=== PATIENT | female | born 1960 ===

== ENCOUNTER 2018-11-26 13:17 | Emergency (ER) | payer OTHER, SELFPAY ==
[2018-11-26 13:43] VITALS: RESP 18
[2018-11-26 15:14] VITALS: BP 130/72; PULSE 78; TEMP 98
--- NOTE | 2018-11-26 15:14 | ED PDOC ---
HPI: Dental Pain/Injury Time Seen by Provider: 11/26/18 13:55 Chief Complaint (Nursing): Dental Pain Chief Complaint (Provider): Dental pain History Per: Patient History/Exam Limitations: no limitations Onset/Duration Of Symptoms: Days (9) Current Symptoms Are (Timing): Still Present Quality: "Pain" Additional Complaint(s): 58yo female, history of hypothyroidsm, comes to ER reporting right sided dental pain x 9 days. She reports taking 1-2 doses of motrin but has not taken anything in the past 1 week; reports using Orajel with some improvement in symptoms. She states the pain has been persistent and worsening, prompting the ER visit. She also reports she had a prior filling to that site that "fell out" 7-8 months ago. Otherwise, no fever, chills, neck pain, or other complaints. Past Medical History Reviewed: Historical Data, Nursing Documentation, Vital Signs Vital Signs: Last Vital Signs Temp 97.7 F 11/26/18 13:42 Pulse 71 11/26/18 13:42 Resp 18 11/26/18 13:42 BP 125/78 11/26/18 13:42 Pulse Ox 96 11/26/18 13:42 - Medical History PMH: Hypothyroidism - Surgical History Surgical History: No Surg Hx - Family History Family History: States: No Known Family Hx - Home Medications Home Medications: Ambulatory Orders Medication Instructions Recorded Ibuprofen [Motrin Tab] 600 mg PO Q6 PRN 7 Days tab 11/26/18 Penicillin VK [Penicillin VK Tab] 500 mg PO Q6 7 Days tab 11/26/18 - Allergies Allergies/Adverse Reactions: Allergies Allergy/AdvReac Type Severity Reaction Status Date / Time No Known Allergies Allergy Verified 11/26/18 13:41 Review of Systems Constitutional: Negative for: Fever, Chills ENT: Positive for: Mouth Pain Musculoskeletal: Negative for: Neck Pain Physical Exam - Reviewed Nursing Documentation Reviewed: Yes Vital Signs Reviewed: Yes - Physical Exam Appears: Positive for: Non-toxic, No Acute Distress Head Exam: Positive for: ATRAUMATIC, NORMAL INSPECTION, NORMOCEPHALIC Skin: Positive for: Normal Color Eye Exam: Positive for: EOMI, PERRL ENT: Positive for: Other (2nd molar on right mandible with hyperpigmentation in center of tooth. No purulent drainage or erythema. +tenderness to palpation of associated gum. ). Negative for: Pharyngeal Erythema, Tonsillar Exudate, Tonsillar Swelling Neck: Positive for: Painless ROM, Supple Cardiovascular/Chest: Positive for: Regular Rate, Rhythm. Negative for: Tachycardia Respiratory: Positive for: Normal Breath Sounds. Negative for: Respiratory Distress Neurological/Psych: Positive for: Awake, Alert - ECG O2 Sat by Pulse Oximetry: 96 (RA) Pulse Ox Interpretation: Normal Medical Decision Making Medical Decision Makinyo female with dental pain Plan: -- Patient given 500mg [place] VK PO Patient informed on need to follow up with dentist MARCEL; informed that treatment today is only temporary and she needs to follow up with dentist for further evaluation. Patient agrees with plan and is stable for discharge home. Scribe Attestation: Documented by Clarisa Lau acting as a scribe for MIRELA Valenzuela. Provider Scribe Attestation: All medical record entries made by the Scribe were at my direction and personally dictated by me. I have reviewed the chart and agree that the record accurately reflects my personal performance of the history, physical exam, medical decision making, and the department course for this patient. I have also personally directed, reviewed, and agree with the discharge instructions and disposition. Disposition - Clinical Impression Clinical Impression: Dental abscess - Disposition Referrals: [facility] [Outside] Jorge Zaldivar DDS [Staff Provider] - Disposition: Routine/Home Disposition Time: 15:10 Condition: STABLE Additional Instructions: Follow up with dentist without fail. You can call Dr. Patel or the [facility]. Take full course of antibiotics. Take tylenol or Ibuprofen for pain. Prescriptions: Ibuprofen [Motrin Tab] 600 mg PO Q6 PRN 7 Days tab PRN Reason: Pain, Moderate (4-7) Penicillin VK [Penicillin VK Tab] 500 mg PO Q6 7 Days tab Instructions: Tooth Abscess (DC), Dental Pain (DC) Forms: [email or web address] ([place]) Print Language: DANISH
[2018-11-26 15:15] VITALS: O2SAT 96
== END 2018-11-26 15:13 | disposition home or self-care (01) ==
LOC: H.ER 13:17
DX: K04.7 Periapical abscess without sinus (principal); E03.9 Hypothyroidism, unspecified